=== PATIENT | female | born 1995 | race Caucasian/White ===

== ENCOUNTER 2020-06-19 17:33 | Emergency (ER) | payer OTHER ==
[~2020-06-19] VITALS: Ht 147.3 cm; Wt 70.0 kg
[2020-06-19 17:40] VITALS: BP 135/96
== END 2020-06-19 20:18 | disposition home or self-care (01) ==
LOC: EMS 17:34
DX: K64.9 Unspecified hemorrhoids (principal); F12.90 Cannabis use, unspecified, uncomplicated
CPT/HCPCS: 99282; Z7502